=== PATIENT | female | born 1970 | race Asian ===

== ENCOUNTER 2021-12-01 07:18 | Emergency (ER) | payer OTHER ==
--- NOTE | 2021-12-01 08:05 | ED Physician Documentation ---
PD HPI SKIN - Stated complaint Stated Complaint: LT FACE/ARM SWELLING - Chief complaint Chief Complaint: General - History obtained from History obtained from: Patient - History of Present Illness Timing - onset: How many days ago (2) Timing - duration: Days (2) Timing - details: Abrupt onset, Still present Location: Face, LUE Quality / character: Itchy, Painful, Swelling Associated symptoms: No: Fever, Myalgias Contributing factors: Unknown (she has had general itchy rash, worse with sun exposure, for a month or more. She does scratch it when itchy. Now with 2 days of red/swelling on upper arm and side of face separate from the general itching.) Review of Systems Constitutional: denies: Fever, Chills Nose: reports: Congestion. denies: Rhinorrhea / runny nose, Sinus pressure / pain Throat: denies: Sore throat Respiratory: denies: Cough GI: denies: Nausea, Vomiting Skin: reports: Rash Neurologic: denies: Generalized weakness PD PAST MEDICAL HISTORY - Past Medical History Past Medical History: No Cardiovascular: None Respiratory: None Neuro: None Endocrine/Autoimmune: None GI: None PLATE SENSITIZER: None : None HEENT: None Psych: None Musculoskeletal: None Derm: None - Past Surgical History Past Surgical History: Yes General: Gastric surgery - Present Medications Home Medications: Ambulatory Orders Medication Instructions Recorded Confirmed Cetirizine [ZyrTEC] 10 mg PO DAILY #15 tablet 12/01/21 Doxycycline Hyclate 100 mg PO BID 7 Days #14 cap 12/01/21 dexAMETHasone [Decadron] 4 mg PO DAILY #5 tablet 12/01/21 - Allergies Allergies/Adverse Reactions: Allergies Allergy/AdvReac Type Severity Reaction Status Date / Time No Known Drug Allergies Allergy Verified 12/01/21 07:33 - Social History Does the pt smoke?: No Smoking Status: Never smoker Does the pt drink ETOH?: No Does the pt have substance abuse?: No - Immunizations Immunizations are current?: Yes PD ED PE NORMAL - Vitals Vital signs reviewed: Yes - General General: Alert and oriented X 3, No acute distress, Well developed/nourished - HEENT HEENT: Pharynx benign (no intraoral edema. ), Other (left side of face around forehead to left cheek with puffy edema without fluctuance. Marked redness. Small skin sore with faint drainage. looks c/w abscess/cellulitis. ) - Neck Neck: Supple, no meningeal sign, Other (left sided neck adenopathy.) - Cardiac Cardiac: RRR, No murmur - Respiratory Respiratory: Clear bilaterally - Derm Derm: Normal color, Warm and dry, Other (fine red pebbly rash on chest/shoulders. ) - Extremities Extremities: Other (left upper arm with area of red/puffy/swelling/tender similar to face, with small skin sore but no drainage/fluctuance.) - Neuro Neuro: No motor deficit, No sensory deficit, Normal speech Results - Vitals Vitals: Oxygen O2 Source Room air - Labs Labs: Microbiology 12/01/21 08:19 Wound Culture - Preliminary Face - Forehead PD MEDICAL DECISION MAKING - ED course Complexity details: considered differential (general allergy rash or solar ur ticaria but with 2 areas of apparent cellulitis/abscess face and arm. Perhaps from scratching led to skin sore that got infected. ), d/w patient Departure - Departure Disposition: 01 Home, Self Care Clinical Impression: Allergic reaction, Skin sore Condition: Stable Record reviewed to determine appropriate education?: Yes Instructions: ED Staph Infec Abx Tx Only, ED Allergic Reaction General Other Follow-Up: [facility] [Provider Group] Prescriptions: dexAMETHasone [Decadron] 4 mg PO DAILY #5 tablet Doxycycline Hyclate 100 mg PO BID 7 Days #14 cap Cetirizine [ZyrTEC] 10 mg PO DAILY #15 tablet Comments: It sounds like you are having an allergic reaction generally with the itchiness and skin rash. We would treat this with antihistamines cetirizine twice daily for several days and then once daily for for couple of weeks. See if you are generally less sun sensitive etc. without as well. Also Decadron steroid daily for 5 more days. In the short-term you can also add Benadryl/diphenhydramine every 6 hours if needed for itching. The area on your upper arm and face separately I am concerned for a local skin infection as well and I would treat with doxycycline twice daily for a week. Recheck if not improving well over the next several days and return if worse. You could also follow-up with family [facility] here in [place] regarding the ongoing sun sensitivity. I transmitted your prescriptions to [facility]. Discharge Date/Time: 12/01/21 09:41
[2021-12-01] MEDS ORDERED: CHERRY SYRUP 10 ML UDC PO ONE (08:42)
[2021-12-01] MEDS ORDERED: CETIRIZINE 10 MG TABLET PO STA (08:42)
[2021-12-01] MEDS ORDERED: diphenhydrAMINE 25 MG CAPSULE PO STA (08:42)
[2021-12-01] MEDS ORDERED: DOXYCYCLINE 100 MG TABLET PO STA (08:42)
[2021-12-01] MEDS ORDERED: DEXAMETHASONE 10 MG/ML VIAL PO STA (08:42)
[2021-12-01 09:41] VITALS: BP 130/76
== END 2021-12-01 09:41 | disposition home or self-care (01) ==
LOC: ED 07:18
DX: T78.40XA Allergy, unspecified, initial encounter (principal)
CPT/HCPCS: 87070; 87205; 99282; 99283; A9270